=== PATIENT | male | born 1955 | race Caucasian/White ===

== ENCOUNTER 2017-09-29 17:43 | Inpatient (IN) | payer MEDICARE, OTHER ==
[~2017-09-29] VITALS: Ht 177.8 cm; Wt 85.0 kg
[2017-09-29 18:00] VITALS: BP 87/52; PULSE 110; RESP 19; TEMP 99.3; O2SAT 95
--- NOTE | 2017-09-29 18:16 | PD ---
HPI Chief Complaint: Abnormal Results Time Seen by Provider: 18:04 Travel History International Travel<30 days: No Contact w/Intl Traveler<30days: No Traveled to known affect area: No History of Present Illness HPI 61-year-old male with a history of quadriplegia, SVT, and asphyxia presents to the emergency department via [facility] from [facility], his rehab facility, for evaluation of decreased oral intake and decreased urine output that has been going on for 1 week. In addition, the facility states that his white blood cell count is 18.2, BUN 88, creatinine 3.2 which is abnormal for him. [facility] states that the patient's mentation is normal per staff at the facility. Patient is only partially interactive with me and is fairly nonverbal. He does indicate that he does not have any pain. He denies any complaints at this point. During my examination, family was able to assist with the history. Says he appears normal to them. Says that he has been treated for urinary tract infection with Cipro over the last week. They state that he mentioned not feeling well this morning but was unable to specify. Denies history of IA. Says he has a history of paroxysmal atrial tachycardia. PFSH Social History Tobacco Use: No Allergies-Medications (Allergen,Severity, Reaction): Coded Allergies: Sulfa (Sulfonamide Antibiotics) (Verified Allergy, Unknown, 09/29/17) carbamazepine (Verified Allergy, Unknown, 09/29/17) Reported Meds & Prescriptions Reported Meds & Active Scripts Active Reported Senna S (Sennosides-Docusate Sodium) 8.6-50 Mg Tab 1 Tab PO TID Milk of Magnesia Liq (Magnesium Hydroxide) 400 Mg/5 Ml Susp 30 Ml PO Q4HR PRN Dulcolax Supp (Bisacodyl) 10 Mg Supp 10 Mg RECTAL PRN Mag-Al Plus Liq (Oysiwdsi-Ecusfaynz-Qfpenovtnaz Liq) 200-200-20 Mg/5 Ml Susp 30 Ml PO Q4HR PRN Tylenol Extra Strength (Acetaminophen) 500 Mg Tablet 500 Mg PO TID PRN Cipro (Ciprofloxacin HCl) 500 Mg Tab 500 Mg PO BID 10 Days Multiple Vitamin/Minerals (Multiple Vitamins W/ Minerals) 1 Tab Tab 1 Tab PO DAILY Lovastatin 40 Mg Tab 40 Mg PO HS Lasix (Furosemide) 20 Mg Tab 20 Mg PO DAILY Vasotec (Enalapril Maleate) 5 Mg Tab 5 Mg PO BID Lanoxin (Digoxin) 250 Mcg Tablet 250 Mcg PO DAILY Hold for A/P less than 60 Calcium 600 with Vitamin 600-400 mg-Unit (Calcium Carbonate-Vitamin D) 600 Mg- 400 Chw 1 Tab PO AT DRESSING CHANGE Dulcolax Supp (Bisacodyl) 10 Mg Supp 10 Mg RECTAL TUTHSA Insert 1 suppository rectally daily on Tuesday, and Tuesday Baclofen 20 Mg Tab 20 Mg PO TID Review of Systems Except as stated in HPI: all other systems reviewed are Neg Physical Exam Narrative GENERAL: Well-nourished, well-developed patient, reluctant to interact with me, SKIN: Focused skin assessment warm/dry. No areas of ulcers HEAD: Normocephalic. EYES: No scleral icterus. No injection or drainage. NECK: Supple, trachea midline. No JVD or lymphadenopathy. CARDIOVASCULAR: Regular rate and rhythm without murmurs, gallops, or rubs. RESPIRATORY: Breath sounds equal bilaterally. No accessory muscle use. GASTROINTESTINAL: Abdomen soft, non-tender, nondistended. mild Contractures present of upper and lower extremities. MUSCULOSKELETAL: No cyanosis, or edema. BACK: Nontender without obvious deformity. No CVA tenderness. Data Data Last Documented VS Vital Signs Date Time Temp Pulse Resp B/P (MAP) Pulse Ox O2 Delivery O2 Flow Rate FiO2 09/29/17 18:00 99.3 110 19 87/52 (64) 09/29/17 18:00 95 Room Air Orders Orders Sepsis Workup Initiated (09/29/17 ) Electrocardiogram (09/29/17 18:05) Complete Blood Count With Diff (09/29/17 18:05) Comprehensive Metabolic Panel (09/29/17 18:05) Prothrombin Time / Inr (Pt) (09/29/17 18:05) Act Partial Throm Time (Ptt) (09/29/17 18:05) Lactic Acid Sepsis Protocol (09/29/17 18:05) Magnesium (Mg) (09/29/17 18:05) Ckmb (Isoenzyme) Profile (09/29/17 18:05) Troponin I (09/29/17 18:05) Urinalysis - C+S If Indicated (09/29/17 18:05) Blood Culture (09/29/17 18:05) Chest, Single Ap (09/29/17 18:05) Blood Glucose (09/29/17 18:05) Ecg Monitoring (09/29/17 18:05) Iv Access Insert/Monitor (09/29/17 18:05) Oximetry (09/29/17 18:05) Electrocardiogram (09/29/17 18:30) Digoxin (09/29/17 18:23) Sodium Chlor 0.9% 1000 Ml Inj (Ns 1000 M (09/29/17 18:24) Sodium Chlor 0.9% 1000 Ml Inj (Ns 1000 M (09/29/17 18:24) Sodium Chlor 0.9% 1000 Ml Inj (Ns 1000 M (09/29/17 18:24) Piperacil-Tazo 4.5 Gm Premix (Zosyn 4.5 (09/29/17 18:29) Vancomycin Inj (Vancomycin Inj) (09/29/17 18:29) CKMB (09/29/17 18:04) CKMB% (09/29/17 18:04) Acetaminophen Supp (Tylenol Supp) (09/29/17 20:15) Acetaminophen (Tylenol) (09/29/17 20:15) Norepinephrine-Dextrose Drip (Levophed-D (09/29/17 20:30) Insert Temp Sensing Cheney Cath (09/29/17 20:28) Norepinephrine Inj (Levophed Inj) (09/29/17 20:30) Admit Order (Ed Use Only) (09/29/17 20:59) Labs Laboratory Tests Test 09/29/17 18:04 09/29/17 18:15 White Blood Count 18.8 TH/MM3 Red Blood Count 4.71 MIL/MM3 Hemoglobin 14.8 GM/DL Hematocrit 44.6 % Mean Corpuscular Volume 94.6 FL Mean Corpuscular Hemoglobin 31.4 PG Mean Corpuscular Hemoglobin Concent 33.2 % Red Cell Distribution Width 14.4 % Platelet Count 139 TH/MM3 Mean Platelet Volume 11.8 FL Neutrophils (%) (Auto) 78.2 % Lymphocytes (%) (Auto) 7.9 % Monocytes (%) (Auto) 13.5 % Eosinophils (%) (Auto) 0.2 % Basophils (%) (Auto) 0.2 % Neutrophils # (Auto) 14.7 TH/MM3 Lymphocytes # (Auto) 1.5 TH/MM3 Monocytes # (Auto) 2.5 TH/MM3 Eosinophils # (Auto) 0.0 TH/MM3 Basophils # (Auto) 0.0 TH/MM3 CBC Comment AUTO DIFF Differential Comment AUTO DIFF CONFIRMED Platelet Estimate LOW Platelet Morphology Comment ENLARGED Prothrombin Time 15.5 SEC Prothromb Time International Ratio 1.5 RATIO Activated Partial Thromboplast Time 22.5 SEC Blood Urea Nitrogen 75 MG/DL Creatinine 2.84 MG/DL Random Glucose 86 MG/DL Total Protein 6.3 GM/DL Albumin 2.3 GM/DL Calcium Level 7.7 MG/DL Magnesium Level 2.6 MG/DL Alkaline Phosphatase 95 U/L Aspartate Amino Transf (AST/SGOT) 324 U/L Alanine Aminotransferase (ALT/SGPT) 566 U/L Total Bilirubin 1.2 MG/DL Sodium Level 142 MEQ/L Potassium Level 3.9 MEQ/L Chloride Level 108 MEQ/L Carbon Dioxide Level 20.3 MEQ/L Anion Gap 14 MEQ/L Estimat Glomerular Filtration Rate 23 ML/MIN Total Creatine Kinase 887 U/L Creatine Kinase MB 8.5 NG/ML Creatine Kinase MB % 1.0 % Troponin I 5.52 NG/ML Digoxin Level 0.6 NG/ML Lactic Acid Level 3.3 mmol/L MDM Medical Decision Making Medical Screen Exam Complete: Yes Emergency Medical Condition: Yes Differential Diagnosis STEMI, ACS, sepsis, ARF Narrative Course 61-year-old male with a history of quadriplegia s/p anoxic brain injury, SVT, and asphyxia presents to the emergency department via [facility] from [facility], his rehab facility, for evaluation of decreased oral intake and decreased urine output that has been going on for 1 week. In addition, the facility states that his white blood cell count is 18.2, BUN 88, creatinine 3.2, found today, is abnormal for him. [facility] states that the patient's mentation is normal per staff at the facility. Patient is only partially interactive with me and is fairly nonverbal. He does indicate that he does not have any pain. He denies any complaints at this point. During my examination, family was able to assist with the history. Says he appears normal to them. Says that he has been treated for urinary tract infection with Cipro over the last week. They state that he mentioned not feeling well this morning but was unable to specify. Denies history of IA. Says he has a history of paroxysmal atrial tachycardia. Vital signs: Blood pressure 87/52, tachycardic rate varying between 100-135BPM, SaO2 95%, Temp 99.3 Sepsis protocol initiated. I reviewed the notes from the rehab facility and made note that patient had: Abdominal ultrasound was completed today after labs demonstrate elbow elevated liver enzymes. The impression "simple cyst right kidney and suspected nonobstructing calculus as described. No liver abnormality by sonogram. The rest of the examination is limited obscured by bowel gas and body habitus." KUB performed as patient had decreased oral intake and decreased urine output. AugustSeptember 26 demonstrates "there is no free air. There is no evidence of bowel obstruction. There is no evidence of adynamic ileus. There is no evidence of renal calculi. There is no evidence of ureteral calculi. Bladder is nondistended. No ascites is evident." A urinalysis performed September 23 was suggestive of a urinary tract infection however, the culture was unremarkable. Labs completed today at [facility]: BUN/creatinine 88/3.2. ALT/AST 489/235 WBC 18.2. TSH 0.78 Last Impressions Chest X-Ray 09/29/17 1805 Signed Impressions: Service Date/Time: September 18:18 - CONCLUSION: Rotated film grossly negative for acute process. Allan Mohan MD CBC & BMP Diagram 09/29/17 18:04 Total Protein 6.3 L, Albumin 2.3 L, Calcium Level 7.7 L, Magnesium Level 2.6 H, Alkaline Phosphatase 95, Aspartate Amino Transf (AST/SGOT) 324 H, Alanine Aminotransferase (ALT/SGPT) 566 H, Total Bilirubin 1.[address] elevation of V2-4 of approximately 4mm. Troponin >5. I spoke with Dr. Craft chairman & ceo, to also evaluated the patient. EKG pattern likely subacute process. Pt is not a good candidate for PCI at this time. Vancomycin and Zosyn ordered. After approximately 3/4 Zosyn 4.5mg administered, pt developed a rash to the neck, possibly as a reaction to the medication. This was D/Cd. The rash spontaneously resolved after DC. Pt has persistent hypotension after 3 L NS IVF bolus. Levophed initiated with minimal improvement in blood pressure. A central line was placed in left femoral for more rapid infusion of fluid and medication. Pt admitted to Dr. Guerra to the ICU. Sepsis Criteria SIRS Criteria (2 or more): Heart rate over 90, WBC > 88825, < 4000 or > 10% bands Sepsis Criteria (SIRS+source): Infect source susp/known Severe Sepsis (+one): Hypotension, Lactate >2 Physician Communication Physician Communication I spoke with Dr. Craft, chairman & ceo, who also evaluated this patient. He did not believe he had an acute cardiac injury but rather a subacute process. He did not recommend PCI or heparin at this time. Diagnosis Primary Impression: ARF (acute renal failure) Qualified Codes: N17.9 - Acute kidney failure, unspecified Additional Impressions: Leukocytosis Qualified Codes: D72.829 - Elevated white blood cell count, unspecified Elevated troponin Sepsis Qualified Codes: A41.9 - Sepsis, unspecified organism Admitting Information Admitting Physician Requests: Admit Condition: Stable Alisha Pimentel Sep 29, 2017 18:16
[2017-09-29] MEDS ORDERED: SODIUM CHLOR 0.9% 1000 ML INJ 1,000 ML IV ONE ×2 (18:24)
[2017-09-29] MEDS ORDERED: SODIUM CHLOR 0.9% 1000 ML INJ 700 ML IV ONE (18:24)
[2017-09-29] MEDS ORDERED: VANCOMYCIN INJ 1,000 MG in SODIUM CHLOR 0.9% 250 ML INJ 250 ML IV STA (18:29)
[2017-09-29] MEDS ORDERED: PIPERACIL-TAZO 4.5 GM PREMIX 100 ML IV STA (18:29)
--- NOTE | 2017-09-29 18:35 | RADRPT ---
EXAM DATE/TIME: 09/29/2017 18:18 [facility] COMPARISON: No previous studies available for comparison. INDICATIONS : Fever. MEDICAL HISTORY : PAT. SURGICAL HISTORY : None. ENCOUNTER: Initial ACUITY: 1 day PAIN SCORE: 0/10 LOCATION: Bilateral chest FINDINGS: Lungs appear grossly clear. Accounting for rotation, the cardiac contours are likely satisfactory. No significant effusions. CONCLUSION: Rotated film grossly negative for acute process. Allan Mohan MD on September 29, 2017 at 18:32 Board Certified Radiologist. This report was verified electronically.
[2017-09-29 18:53] LABS: AUTOMATED NEUTROPHIL # 14.7 TH/MM3 (1.8-7.7); BASOPHIL % 0.2 % (0.0-2.0); EOSINOPHIL % 0.2 % (0.0-4.0); HEMATOCRIT 44.6 % (39.0-51.0); HEMOGLOBIN 14.8 GM/DL (13.0-17.0); LYMPH % 7.9 % (9.0-44.0); LYMPHOCYTE # 1.5 TH/MM3 (1.0-4.8); MEAN CELL VOLUME 94.6 FL (80.0-100.0); MEAN CORPUSCULAR HEMOGLOBIN 31.4 PG (27.0-34.0); MEAN CORPUSCULAR HGB CONC 33.2 % (32.0-36.0); MEAN PLATELET VOLUME 11.8 FL (7.0-11.0); MONO % 13.5 % (0.0-8.0); MONOCYTE # 2.5 TH/MM3 (0-0.9); NEUT % 78.2 % (16.0-70.0); PLATELET COUNT 139 TH/MM3 (150-450); RED BLOOD COUNT 4.71 MIL/MM3 (4.50-5.90); RED CELL DISTRIBUTION WIDTH 14.4 % (11.6-17.2); WHITE BLOOD COUNT 18.8 TH/MM3 (4.0-11.0)
[2017-09-29 19:07] LABS: INTERNATIONAL NORMALIZED RATIO 1.5 RATIO; PROTHROMBIN TIME - PATIENT 15.5 SEC (9.8-11.6)
[2017-09-29 19:08] LABS: ALT (GPT) 566 U/L (12-78)
[2017-09-29 19:09] LABS: LACTIC ACID SEPSIS PROTOCOL 3.3 mmol/L (0.4-2.0)
[2017-09-29 19:12] LABS: ALBUMIN 2.3 GM/DL (3.4-5.0); ALKALINE PHOSPHATASE 95 U/L (45-117); AST (GOT) 324 U/L (15-37); BICARBONATE 20.3 MEQ/L (21.0-32.0); BLOOD UREA NITROGEN 75 MG/DL (7-18); CALCIUM 7.7 MG/DL (8.5-10.1); CHLORIDE 108 MEQ/L (98-107); CREATININE 2.84 MG/DL (0.60-1.30); GLOMERULAR FILTRATION RATE 23 ML/MIN (>89); GLUCOSE,RANDOM 86 MG/DL (74-106); MAGNESIUM 2.6 MG/DL (1.5-2.5); SODIUM (NA) 142 MEQ/L (136-145); TOTAL BILIRUBIN ADULT 1.2 MG/DL (0.2-1.0); TOTAL PROTEIN 6.3 GM/DL (6.4-8.2)
[2017-09-29 19:15] LABS: TROPONIN I 5.52 NG/ML (0.02-0.05)
[2017-09-29] MEDS ORDERED: ACET-822 PO (19:22)
[2017-09-29] MEDS ORDERED: LOVA40TA PO (19:22)
[2017-09-29] MEDS ORDERED: BACL20TA PO (19:22)
[2017-09-29] MEDS ORDERED: CALCCHW5 PO (19:22)
[2017-09-29] MEDS ORDERED: DULC10SU3 RECTAL ×2 (19:22)
[2017-09-29] MEDS ORDERED: LANO0.252 PO (19:22)
[2017-09-29] MEDS ORDERED: MULT1TAB39 PO (19:22)
[2017-09-29] MEDS ORDERED: MILKSUS PO (19:22)
[2017-09-29] MEDS ORDERED: MAG-LIQ PO (19:22)
[2017-09-29] MEDS ORDERED: CIPR-9 PO (19:22)
[2017-09-29] MEDS ORDERED: FURO1TAB62 PO (19:22)
[2017-09-29] MEDS ORDERED: ENAL5TAB98 PO (19:22)
[2017-09-29] MEDS ORDERED: SENN8.6T8 PO (19:24)
[2017-09-29] MEDS ORDERED: ACETAMINOPHEN 650 MG SUPP RECTAL ONE (20:15)
[2017-09-29] MEDS ORDERED: ACETAMINOPHEN 325 MG TAB PO ONE (20:15)
[2017-09-29] MEDS ORDERED: NOREPINEPHRINE 4 MG/4 ML AMP ONE (20:30)
[2017-09-29] MEDS ORDERED: NOREPINEPHRINE-DEXTROSE DRIP 250 ML IV PRN (20:30)
--- NOTE | 2017-09-29 20:40 | MB ---
cc: Miguel Craft MD DATE: 09/29/2017 HISTORY OF PRESENT ILLNESS: Christoph is a very pleasant 61-year-old gentleman, who resides in a [place] [facility] with history of quadriplegia, SVT, asphyxia, brought in to the ER due to decreased p.o. intake and decreased urine output, abnormal labs, creatinine of 3.2, white cell count of 18.2. He was found to have a deep anterior septal Q-waves with ST elevation in the anterior leads and elevated troponin; however, his CK-MB percentage is within normal limits. The patient is accompanied by his mother and family. The patient denies any symptoms such as chest pain, shortness of breath, fever, chills, cough, ____, PND, orthopnea, syncope, or dizziness. PAST MEDICAL HISTORY: Per history of present illness. ALLERGIES: SULFA AND CARBAMAZEPINE. SOCIAL HISTORY: Denies tobacco or alcohol use. MEDICATIONS IN THE HOSPITAL: Piperacillin/tazobactam, vancomycin. PHYSICAL EXAMINATION: VITAL SIGNS: Pulse 110. Temperature 99.3, blood pressure 87/52, sats 95% on room air. GENERAL: He is alert and oriented x 3, in no acute distress. NECK: Supple. No JVD. No bruit. CARDIOVASCULAR: S1, S2. No murmurs, rubs or gallops. LUNGS: Clear to auscultation bilaterally. ABDOMEN: Soft, nontender, nondistended with positive bowel sounds. EXTREMITIES: No lower extremity edema. IMAGING STUDIES: Chest x-ray shows rotated film, grossly negative for acute process. EKG shows sinus rhythm with deep anteroseptal Q-waves and 2-[address] segment elevation in the anteroseptal leads. LABORATORY DATA: White count 19.8, hemoglobin 14.8, hematocrit 44.6, platelet count is 139. Sodium 142, potassium 3.9, chloride 108, bicarb 20.3, BUN 75, creatinine 2.84, AST 324, ALT 566, total CK is 887 with an MB percent of 1.0, troponin is 5.52. Albumin 2.3. INR is 1.5. He has the following diagnoses: 1. Subacute myocardial infarction. 2. Hypotension. 3. Acute renal failure. 4. Elevated white count. 5. Quadriplegia. 6. Coagulopathy. 7. Markedly elevated liver enzymes. 8. Thrombocytopenia. 9. Hypoalbuminemia. 10. Elevated bilirubin. 11. Lactic acidosis. DISCUSSION: At this point in time, I do not think the patient is having an acute event. He is asymptomatic. His CK-MB percentage is negative. I suspect he probably had a recent event which is completed due to the presence of large anterior septal Q-waves. I have spoken in detail with the patient's surrogate decision maker, his mother, and she agrees with the plan of medical management. We also discussed that heart catheterization would be high risk for needing temporary or permanent dialysis given the presentation with acute renal failure, as well as possible sepsis. The patient's mother states that she wants him to be DNR; however, we are going to continue with aggressive medical management for both coronary artery disease, cardiomyopathy and possible sepsis, UTI. At this point in time, I would aspirin 81 mg a day. He has a coagulopathy and thrombocytopenia and most likely again a completed event, and hypotension. Therefore, I think initially will hold heparin. He is too hypotensive to receive nitro, MARVIN inhibitor or beta jorge l. Will get a 2-D echo. Suspect he will probably need ICU care. I have explained to his mother and family that he is very high risk for poor outcome given his multiple comorbidities. They understand. They also refused heart catheterization at this point in time. Will continue to follow trends in cardiac enzymes, liver enzymes and creatinine and blood pressure. MD DAMARIS Reynolds/rt , 08:12 PM , 08:39 PM
[2017-09-29] MEDS ORDERED: DEXTROSE 50% IN WATER 50 ML VIAL(D50) IV PUSH PRN (21:00)
[2017-09-29] MEDS ORDERED: Vancomycin Consult Pharmacy 1 EA OTHER SCH (21:00)
[2017-09-29] MEDS ORDERED: INSULIN NovoLIN REGULAR SUPPLEMENTAL SCALE SQ SCH (21:00)
[2017-09-29] MEDS ORDERED: ACETAMINOPHEN 325 MG TAB PO PRN (21:00)
[2017-09-29] MEDS ORDERED: ONDANSETRON HCL 4 MG/2 ML VIAL IV PUSH PRN (21:00)
[2017-09-29] MEDS ORDERED: CHLORHEXIDINE GLUCONATE 2 % 1 PACK (2 CLOTHS) TOP PRN (21:00)
[2017-09-29] MEDS ORDERED: LACTATED RINGER'S 1000 ML INJ 1,000 ML IV SCH (21:00)
[2017-09-29] MEDS ORDERED: RESP: ALBUTEROL 2.5 MG/IPRATROPIUM 0.5 MG NEB (PRN) INH (21:00)
[2017-09-29] MEDS ORDERED: MISCELLANEOUS NURSING INFORMATION XX SCH (21:00)
[2017-09-29] MEDS ORDERED: ALBUMIN 5% INJ 500 ML IV ONE (21:00)
[2017-09-29] MEDS ORDERED: KETAMINE HCL 500 MG/10 ML VIAL OTHER STA (21:20)
[2017-09-29 21:31] VITALS: O2SAT 95
--- NOTE | 2017-09-29 21:40 | HHI.HP ---
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 Per his and medical decision maker, he was in his normal state of health without any changes to his current health when his correction facility noticed that his urine was getting darker and they sent a urinalysis which they stated was suggestive of urinary tract infection. They started him on Cipro by mouth. They also stated that renal ultrasound was positive for a kidney stone. They noticed that over the last few days his p.o. intake had decreased, although no other changes was evident in his medical history. On repeat lab monitoring today, they noticed that his renal function was getting worse as well as "other lab values were getting worse "and he was sent to [facility] emergency department for further workup. In the emergency department, he was found to have a troponin of 5, evidence of likely subacute myocardial infarction, significantly elevated creatinine greater than 2 , elevated LFTs, and elevated lactate. He was also hypotensive requiring IV fluid resuscitation and also initiation of vasopressors. Urinalysis was positive. The patient was treated empirically with vancomycin and Zosyn for septic shock secondary to urinary tract infection. Unfortunately, the patient' s baseline mental status is nonverbal, and he is unable to give us any history at all. Patient has never been at this institution and I have no other past medical history to go by. The 's dates that he has been relatively healthy up until his anoxic brain injury, and after that has also been very healthy. She states that he is full care, needing to be fed and all of his ADLs assisted. Review of systems is unobtainable. Review of Systems ROS Limitations: Clinical Condition, Uncooperative, Poor Historian Past Family Social History Allergies: Coded Allergies: Sulfa (Sulfonamide Antibiotics) (Verified Allergy, Unknown, 09/29/17) carbamazepine (Verified Allergy, Unknown, 09/29/17) Past Medical History Anoxic brain injury in the remote past Contractures Past Surgical History Unknown unobtainable secondary clinical condition the patient Reported Medications Senna S (Sennosides-Docusate Sodium) 8.6-50 Mg Tab 1 Tab PO TID Milk of Magnesia Liq (Magnesium Hydroxide) 400 Mg/5 Ml Susp 30 Ml PO Q4HR PRN Dulcolax Supp (Bisacodyl) 10 Mg Supp 10 Mg RECTAL PRN Mag-Al Plus Liq (Bbkbywer-Isizmsegk-Veajrqrnlfu Liq) 200-200-20 Mg/5 Ml Susp 30 Ml PO Q4HR PRN Tylenol Extra Strength (Acetaminophen) 500 Mg Tablet 500 Mg PO TID PRN Cipro (Ciprofloxacin HCl) 500 Mg Tab 500 Mg PO BID 10 Days Multiple Vitamin/Minerals (Multiple Vitamins W/ Minerals) 1 Tab Tab 1 Tab PO DAILY Lovastatin 40 Mg Tab 40 Mg PO HS Lasix (Furosemide) 20 Mg Tab 20 Mg PO DAILY Vasotec (Enalapril Maleate) 5 Mg Tab 5 Mg PO BID Lanoxin (Digoxin) 250 Mcg Tablet 250 Mcg PO DAILY Hold for A/P less than 60 Calcium 600 with Vitamin 600-400 mg-Unit (Calcium Carbonate-Vitamin D) 600 Mg- 400 Chw 1 Tab PO AT DRESSING CHANGE Dulcolax Supp (Bisacodyl) 10 Mg Supp 10 Mg RECTAL TUTHSA Insert 1 suppository rectally daily on Tuesday, and Tuesday Baclofen 20 Mg Tab 20 Mg PO TID Active Ordered Medications See MAR Family History Unknown and unobtainable secondary to clinical condition the patient Social History Unknown and unobtainable secondary to kill clinical condition the patient. Resides in a correction facility. Physical Exam Vital Signs Vital Signs Date Time Temp Pulse Resp B/P (MAP) Pulse Ox O2 Delivery O2 Flow Rate FiO2 09/29/17 18:00 99.3 110 19 87/52 (64) 09/29/17 18:00 95 Room Air 09/29/17 18:00 99.3 110 19 87/52 (64) 95 Room Air Physical Exam GENERAL: Frail middle-aged male with significant contractures, lying in bed HEENT: Normocephalic. Atraumatic. Pupils equal, round, reactive, conjugate. Mucous membranes are moist NECK: Trachea is midline. There is no JVD. CHEST: Equal chest rise. Room air. CARDIOVASCULAR: Normal rate, regular rhythm. Appears sinus by telemetry. Hypotensive with a mean arterial pressure of 59 on my evaluation. ABDOMEN: Soft, nontender, nondistended. No guarding. MUSCULOSKELETAL: Pulses 2+. No peripheral edema. All 4 extremities are contractured. NEUROLOGICAL: RASS -2. Does not follow commands. Withdraws to pain. Per his family, this is a baseline neurologic exam and is completely unchanged from prior neurologic exams. Laboratory Laboratory Tests Test 09/29/17 18:04 09/29/17 18:15 White Blood Count 18.8 Red Blood Count 4.71 Hemoglobin 14.8 Hematocrit 44.6 Mean Corpuscular Volume 94.6 Mean Corpuscular Hemoglobin 31.4 Mean Corpuscular Hemoglobin Concent 33.2 Red Cell Distribution Width 14.4 Platelet Count 139 Mean Platelet Volume 11.8 Neutrophils (%) (Auto) 78.2 Lymphocytes (%) (Auto) 7.9 Monocytes (%) (Auto) 13.5 Eosinophils (%) (Auto) 0.2 Basophils (%) (Auto) 0.2 Neutrophils # (Auto) 14.7 Lymphocytes # (Auto) 1.5 Monocytes # (Auto) 2.5 Eosinophils # (Auto) 0.0 Basophils # (Auto) 0.0 CBC Comment AUTO DIFF Differential Comment AUTO DIFF CONFIRMED Platelet Estimate LOW Platelet Morphology Comment ENLARGED Prothrombin Time 15.5 Prothromb Time International Ratio 1.5 Activated Partial Thromboplast Time 22.5 Blood Urea Nitrogen 75 Creatinine 2.84 Random Glucose 86 Total Protein 6.3 Albumin 2.3 Calcium Level 7.7 Magnesium Level 2.6 Alkaline Phosphatase 95 Aspartate Amino Transf (AST/SGOT) 324 Alanine Aminotransferase (ALT/SGPT) 566 Total Bilirubin 1.2 Sodium Level 142 Potassium Level 3.9 Chloride Level 108 Carbon Dioxide Level 20.3 Anion Gap 14 Estimat Glomerular Filtration Rate 23 Total Creatine Kinase 887 Creatine Kinase MB 8.5 Creatine Kinase MB % 1.0 Troponin I 5.52 Lactic Acid Level 3.3 Date/Time Source Procedure Growth Status 09/29/17 18:05 Blood Peripheral Aerobic Blood Culture Pending Received 09/29/17 18:05 Blood Peripheral Anaerobic Blood Culture Pending Received Result Diagram: 09/29/[id number]/29/[id number] Imaging Last Impressions Chest X-Ray 09/29/171804 Signed Impressions: Service Date/Time: September 18:18 - CONCLUSION: Rotated film grossly negative for acute process. Allan Moahn MD Septic Shock Reassessment Septic shock perfusion: reassessment completed Caprini VTE Risk Assessment Caprini VTE Risk Assessment: Mod/High Risk (score >= 2) Caprini Risk Assessment Model Point Value = 1 Point Value = 2 Point Value = 3 Point Value = 5 Age 41-60 Minor surgery BMI > 25 kg/m2 Swollen legs Varicose veins or History of unexplained or recurrent spontaneous Oral contraceptives or hormone replacement Sepsis (< 1 month) Serious lung disease, including pneumonia (< 1 month) Abnormal pulmonary function Acute myocardial infarction Congestive heart failure (< 1 month) History of inflammatory bowel disease Medical patient at bed rest Age 61-74 Arthroscopic surgery Major open surgery (> 45 min) Laparoscopic surgery (> 45 min) Malignancy Confined to bed (> 72 hours) Immobilizing plaster cast Central venous access Age >= 75 History of VTE Family history of VTE Factor V Leiden Prothrombin [id number] Lupus anticoagulant Anticardiolipin antibodies Elevated serum homocysteine Heparin-induced thrombocytopenia Other congenital or acquired thrombophilia Stroke (< 1 month) Elective arthroplasty Hip, pelvis, or leg fracture Acute spinal cord injury (< 1 month) Prophylaxis Regimen Total Risk Factor Score Risk Level Prophylaxis Regimen 0-1 Low Early ambulation 2 Moderate Order ONE of the following: *Sequential Compression Device (SCD) *Heparin 5000 units SQ BID 3-4 Higher Order ONE of the following medications: *Heparin 5000 units SQ TID *Enoxaparin/Lovenox 40 mg SQ daily (WT < 150 kg, CrCl > 30 mL/min) *Enoxaparin/Lovenox 30 mg SQ daily (WT < 150 kg, CrCl > 10-29 mL/min) *Enoxaparin/Lovenox 30 mg SQ BID (WT < 150 kg, CrCl > 30 mL/min) AND/OR *Sequential Compression Device (SCD) 5 or more Highest Order ONE of the following medications: *Heparin 5000 units SQ TID (Preferred with Epidurals) *Enoxaparin/Lovenox 40 mg SQ daily (WT < 150 kg, CrCl > 30 mL/min) *Enoxaparin/Lovenox 30 mg SQ daily (WT < 150 kg, CrCl > 10-29 mL/min) *Enoxaparin/Lovenox 30 mg SQ BID (WT < 150 kg, CrCl > 30 mL/min) AND *Sequential Compression Device (SCD) Assessment and Plan Assessment and Plan Assessment: 61yM with acute multi-organ failure which may likely be due to multifactorial shock including septic shock and possible cardiogenic shock from sub-acute myocardial infarction. will support all organ systems and admit to ICU. critically ill and clearly high risk for further decompensation. Plan by systems: Neurologic: Prior anoxic brain injury neuro checks per unit standard avoid benzos continue home baclofen Respiratory: Wean oxygen by nasal cannula for goal SPO2 greater than 90% Aggressive pulmonary toilet Cardiovascular: Non-ST elevation myocardial infarction Elevated troponin Lactic acidosis Septic shock Possible cardiogenic shock Cardiology consulted Trend cardiac enzymes Maintenance IV fluids Trend lactates Unclear what component sepsis versus cardiogenic shock has played a role in organ dysfunction Will allow cardiology to guide anticoagulation plan Norepinephrine for goal map greater than 65 Renal: Acute kidney injury Place Cheney Renal ultrasound Urine electrolytes Urine eosinophils Maintenance IV fluids Given the clinical history suggestive of obstructive urinary stone, will obtain noncontrasted CT abdomen pelvis -- Strict I/Os FEN/GI: Acute protein calorie malnutrition -moderate Elevated liver enzymes Possible shock liver Swallow evaluation and advance diet as tolerated Daily CMP Liver ultrasound Hold home statin given elevations in liver enzymes Heme/ID: Septic shock Possible urinary tract infection Coagulopathy secondary to acute liver disease Continue vancomycin and Zosyn Follow blood cultures and urine culture Daily CBC Daily coags Endocrine: Hyperglycemia of critical illness -- SSI Prophylaxis: GI Prophylaxis No indication for GI prophylaxis at this time DVT Prophylaxis -- SCDs Subcu heparin Lines: Peripheral IVs Currently on vasopressors. Will need central venous access Cheney Dispo: Admit to ICU. Critically ill. This patient remains critically ill with one or more organ systems which are or may become a threat to life. I have spent in excess of 61 minutes discontinuously in the care and management of this patient. This time is exclusive of procedures, and includes, but is not limited to, evaluation of the patient, review of the medical record, discussions with family, consultants, nursing staff, or respiratory therapy, and documentation in the medical record. Code Status His and I had a long conversation where she conveyed that she would want aggressive medical treatment, including and up to antibiotics, vasopressors, fluids. However, she does not want significantly aggressive therapies, which she states would include left heart catheterization, CPR, ACLS drugs, intubations, or further invasive procedures other than central line placement. At her request, we will make the patient DNR with aggressive measures, but a measured response if the patient continues to decline. Ernesto Guerra MD Sep 29, 2017 21:40
[2017-09-29] MEDS ORDERED: HEPARIN SODIUM - SQ 10,000 UNITS/ML VIAL SQ SCH (22:00)
[2017-09-30 00:30] VITALS: BP 97/64; PULSE 99; RESP 20; TEMP 99; O2SAT 98
--- NOTE | 2017-09-30 00:35 | RADRPT ---
EXAM DATE/TIME: 09/30/2017 00:10 [facility] COMPARISON: No previous studies available for comparison. INDICATIONS : Abdominal pain, renal failure, possible obstructive stone. ORAL CONTRAST: No oral contrast ingested. RADIATION DOSE: 19.07 CTDIvol (mGy) MEDICAL HISTORY : Renal calculi. Renal failure, chronic. Anoxic brain injury. SURGICAL HISTORY : None. ENCOUNTER: Initial ACUITY: 1 day PAIN SCALE: Non-responsive LOCATION: abdomen in the future if there is a medical necessity for iodinated contrast. TECHNIQUE: Volumetric scanning of the abdomen and pelvis was performed. Using automated exposure control and ad justment of the mA and/or kV according to patient size, radiation dose was kept as low as reasonably achievable to obtain optimal diagnostic quality images. DICOM format image data is available electro nically for review and comparison. FINDINGS: LOWER LUNGS: Small posterior layering pleural effusions bilaterally. A moderate size pericardial effusion. LIVER: Homogeneous density without lesion. There is no dilation of the biliary tree. No calcified gallston es. SPLEEN: Normal size without lesion. PANCREAS: Within normal limits. KIDNEYS: There is a 14 mm nonobstructing right renal stone. No other calculi. No hydronephrosis or hydroureter . Small low density cortical based lesions are seen involving the right kidney. The largest involves the upper pole measuring 2.3 cm. ADRENAL GLANDS: Within normal limits. VASCULAR: There is no aortic aneurysm. BOWEL/MESENTERY: The stomach, small bowel, and colon demonstrate no acute abnormality. There is no free intraperitone al air or fluid. ABDOMINAL WALL: Within normal limits. RETROPERITONEUM: There is no lymphadenopathy. BLADDER: There is a Cheney balloon present in the urinary bladder is decompressed and poorly evaluated. REPRODUCTIVE: Within normal limits. INGUINAL: There is a central line involving the left groin. Small volume air is seen within the left groin like ly from the intervention. No hematoma. No adenopathy. MUSCULOSKELETAL: Within normal limits for patient age. CONCLUSION: 1. 14 mm nonobstructing right renal stone. 2. Moderate pericardial effusion. 3. Tiny bilateral pleural effusions. Christoph Whitten Jr., MD on September 30, 2017 at 0:29 Board Certified Radiologist. This report was verified electronically.
[2017-09-30 00:36] LABS: CREATININE, RANDOM URINE 61.8 MG/DL
[2017-09-30 00:54] LABS: TROPONIN I 5.27 NG/ML (0.02-0.05)
[2017-09-30 00:59] LABS: BACTERIA, URINE RARE /hpf; BILIRUBIN, URINE NEG (NEG); BLOOD, URINE MOD (NEG); GLUCOSE,URINE NEG (NEG); KETONE, URINE NEG (NEG); MUCUS URINE FEW /lpf (OCC); NITRITE,URINE NEG (NEG); PH, URINE 5.5 (5.0-8.5); SQUAMOUS EPITHELIAL CELL URINE <1 /hpf (0-5); URIC ACID CRYSTALS, URINE FEW /hpf; URINE COLOR LIGHT-YELLOW (YELLW/STRAW); URINE LEUKOCYTE ESTERASE NEG (NEG)
[2017-09-30 01:30] VITALS: O2SAT 81
[2017-09-30 02:52] VITALS: PULSE 98
[2017-09-30] MEDS ORDERED: CHLORHEXIDINE GLUCONATE 2 % 1 PACK (2 CLOTHS) TOP SCH (04:00)
[2017-09-30] MEDS ORDERED: PIPERACIL-TAZO 3.375 GM PREMIX 50 ML IV SCH (05:00)
--- NOTE | 2017-09-30 05:53 | HHI.DS ---
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 Per his and medical decision maker, he was in his normal state of health without any changes to his current health when his [place] [facility] facility noticed that his urine was getting darker and they sent a urinalysis which they stated was suggestive of urinary tract infection. They started him on Cipro by mouth. They also stated that renal ultrasound was positive for a kidney stone. They noticed that over the last few days his p.o. intake had decreased, although no other changes was evident in his medical history. On repeat lab monitoring today, they noticed that his renal function was getting worse as well as "other lab values were getting worse "and he was sent to [facility] emergency department for further workup. In the emergency department, he was found to have a troponin of 5, evidence of likely subacute myocardial infarction, significantly elevated creatinine greater than 2 , elevated LFTs, and elevated lactate. He was also hypotensive requiring IV fluid resuscitation and also initiation of vasopressors. Urinalysis was positive. The patient was treated empirically with vancomycin and Zosyn for septic shock secondary to urinary tract infection. Unfortunately, the patient' s baseline mental status is nonverbal, and he is unable to give us any history at all. Patient has never been at this institution and I have no other past medical history to go by. The 's dates that he has been relatively healthy up until his anoxic brain injury, and after that has also been very healthy. She states that he is full care, needing to be fed and all of his ADLs assisted. Review of systems is unobtainable. CBC/BMP: 09/29/17 1804 09/29/17 1804 Significant Findings Laboratory Tests Test 09/29/17 18:04 09/29/17 18:15 09/29/17 23:05 09/29/17 23:45 White Blood Count 18.8 TH/MM3 (4.0-11.0) Platelet Count 139 TH/MM3 (150-450) Mean Platelet Volume 11.8 FL (7.0-11.0) Neutrophils (%) (Auto) 78.2 % (16.0-70.0) Lymphocytes (%) (Auto) 7.9 % (9.0-44.0) Monocytes (%) (Auto) 13.5 % (0.0-8.0) Neutrophils # (Auto) 14.7 TH/MM3 (1.8-7.7) Monocytes # (Auto) 2.5 TH/MM3 (0-0.9) Platelet Estimate LOW (NORMAL) Platelet Morphology Comment ENLARGED (NORMAL) Prothrombin Time 15.5 SEC (9.8-11.6) Activated Partial Thromboplast Time 22.5 SEC (24.3-30.1) Blood Urea Nitrogen 75 MG/DL (7-18) Creatinine 2.84 MG/DL (0.60-1.30) Total Protein 6.3 GM/DL (6.4-8.2) Albumin 2.3 GM/DL (3.4-5.0) Calcium Level 7.7 MG/DL (8.5-10.1) Magnesium Level 2.6 MG/DL (1.5-2.5) Aspartate Amino Transf (AST/SGOT) 324 U/L (15-37) Alanine Aminotransferase (ALT/SGPT) 566 U/L (12-78) Total Bilirubin 1.2 MG/DL (0.2-1.0) Chloride Level 108 MEQ/L (98-107) Carbon Dioxide Level 20.3 MEQ/L (21.0-32.0) Estimat Glomerular Filtration Rate 23 ML/MIN (>89) Total Creatine Kinase 887 U/L (39-308) 699 U/L (39-308) Creatine Kinase MB 8.5 NG/ML (0.5-3.6) 5.8 NG/ML (0.5-3.6) Troponin I 5.52 NG/ML (0.02-0.05) 5.27 NG/ML (0.02-0.05) Digoxin Level 0.6 NG/ML (0.8-2.0) Lactic Acid Level 3.3 mmol/L (0.4-2.0) Urine Turbidity HAZY (CLEAR) Urine Occult Blood MOD (NEG) Urine RBC 25 /hpf (0-3) Urine Uric Acid Crystals FEW /hpf (NONE) Urine Bacteria RARE /hpf (NONE) Urine Mucus FEW /lpf (OCC) Prealbumin 5 MG/DL (20-40) Test 09/30/17 00:30 Imaging Last Impressions Chest X-Ray 09/29/17 1805 Signed Impressions: Service Date/Time: September 18:18 - CONCLUSION: Rotated film grossly negative for acute process. 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 Per his and medical decision maker, he was in his normal state of health without any changes to his current health when his [place] [facility] facility noticed that his urine was getting darker and they sent a urinalysis which they stated was suggestive of urinary tract infection. They started him on Cipro by mouth. They also stated that renal ultrasound was positive for a kidney stone. They noticed that over the last few days his p.o. intake had decreased, although no other changes was evident in his medical history. On repeat lab monitoring today, they noticed that his renal function was getting worse as well as "other lab values were getting worse "and he was sent to [facility] emergency department for further workup. In the emergency department, he was found to have a troponin of 5, evidence of likely subacute myocardial infarction, significantly elevated creatinine greater than 2 , elevated LFTs, and elevated lactate. He was also hypotensive requiring IV fluid resuscitation and also initiation of vasopressors. Urinalysis was positive. The patient was treated empirically with vancomycin and Zosyn for septic shock secondary to urinary tract infection. Unfortunately, the patient' s baseline mental status is nonverbal, and he is unable to give us any history at all. Patient has never been at this institution and I have no other past medical history to go by. The 's dates that he has been relatively healthy up until his anoxic brain injury, and after that has also been very healthy. She states that he is full care, needing to be fed and all of his ADLs assisted. Review of systems is unobtainable. The patient was admitted to the ICU where hours later he had an episode of severe bradycardia that progressed rapidly to PEA arrest. due to his and his 's already expressed DNR wishes, ACLS was not performed. the patient at 0200. Ernesto Guerra MD Sep 30, 2017 05:53
[2017-09-30] MEDS ORDERED: BACLOFEN 20 MG TAB PO SCH (09:00)
[2017-09-30] MEDS ORDERED: VANCOMYCIN INJ 800 MG in SODIUM CHLOR 0.9% 250 ML INJ 250 ML IV SCH (23:00)
--- NOTE | 2017-10-01 09:11 | EKG ---
Date Performed: 09/29/2017 Time Performed: 19:24:07 PTAGE: 61 years EKG: SINUS TACHYCARDIA WITH SHORT ID INTERVAL MARKED LEFT AXIS DEVIATION RIGHT BUNDLE BRANCH BLO CK INTERPRETATION BASED ON A DEFAULT AGE OF 40 YEARS PREVIOUS TRACING : 09/29/2017 18.46 DOCTOR: Jaguar Salomon Interpretating Date/Time 10/01/2017 09:08:42
--- NOTE | 2017-10-01 09:14 | EKG ---
Date Performed: 09/29/2017 Time Performed: 18:07:44 PTAGE: 61 years EKG: SINUS TACHYCARDIA WITH SHORT [place] INTERVAL MARKED LEFT AXIS DEVIATION RIGHT BUNDLE BRANCH BLO CK PREVIOUS TRACING : 09/28/2017 07.03 DOCTOR: Jaguar Salomon Interpretating Date/Time 10/01/2017 09:10:21
[2017-10-02] MEDS ORDERED: PHARMACY ORDERED LAB ONE (22:45)
== END 2017-09-30 01:33 | disposition expired ==
LOC: NEPC 17:43 → NEDA 21:03 → HIMW 09-30 00:20
PROVIDERS: ADMIT Internal Medicine Critical Care Medicine; ATTEND Internal Medicine Critical Care Medicine
DX: I46.9 Cardiac arrest, cause unspecified (principal); A41.9 Sepsis, unspecified organism; I21.4 Non-ST elevation (NSTEMI) myocardial infarction; R65.21 Severe sepsis with septic shock; G82.50 Quadriplegia, unspecified; G93.1 Anoxic brain damage, not elsewhere classified; N17.9 Acute kidney failure, unspecified; I95.9 Hypotension, unspecified; E44.0 Moderate protein-calorie malnutrition; N39.0 Urinary tract infection, site not specified; D68.9 Coagulation defect, unspecified; I42.9 Cardiomyopathy, unspecified; N20.0 Calculus of kidney; K76.9 Liver disease, unspecified; R73.9 Hyperglycemia, unspecified; Z66 Do not resuscitate; D69.6 Thrombocytopenia, unspecified; E88.09 Other disorders of plasma-protein metabolism, not elsewhere classified; I25.10 Atherosclerotic heart disease of native coronary artery without angina pectoris
CPT/HCPCS: 51702; 71045; 74176; 80053; 80074; 80162; 81001; 82550; 82552; 82570; 83605; 83735; 84134; 84300; 84484; 85025; 85610; 85730; 87040; 87086; 87205; 87641; 93005; 96361; 96365; J1644; J2543; J3370; J7030; J7050; J7120